=== PATIENT | female | born 1960 | race Caucasian/White ===

== ENCOUNTER 2020-11-11 06:24 | Emergency (ER) | payer MEDICARE ==
[2020-11-11 08:57] LABS: BASOPHIL 0.4 % (0-2); EOSINOPHIL 0.2 % (0-5); HCT 40.3 % (37.0-47.0); HGB 13.1 g/dl (12.5-16.0); LYMPHOCYTE 12.1 % (15-48); MCH 29.7 pg (25.0-31.0); MCHC 32.5 g/dL (32.0-36.0); MCV 91.4 fL (78.0-100.0); MONOCYTE 3.1 % (0-12); MPV 11.2 fL (6.0-9.5); NRBC 0; PLT 249 K/uL (150-400); RBC 4.41 M/uL (4.20-5.40); WBC 10.5 K/uL (4.0-10.5)
[2020-11-11 08:58] LABS: ALBUMIN 3.6 g/dL (3.4-5.0); BILIRUBIN - TOTAL 0.5 mg/dL (0.2-1.0); BUN/CREAT RATIO (CALC) 34.5 RATIO; C-REACTIVE PROTEIN 0.5 mg/dL (<=0.90); CREATININE 0.58 mg/dL (0.51-0.95); GLOBULIN (CALCULATION) 3.9 g/dL; POTASSIUM 4.3 mmol/L (3.5-5.1); TOTAL PROTEIN 7.5 g/dL (6.4-8.2)
[2020-11-11 09:17] LABS: LACTIC ACID 1.5 mmol/L (0.4-1.9)
[2020-11-11 12:18] LABS: BILIRUBIN NEGATIVE (NEGATIVE); BLOOD 1+ Ery/uL (NEGATIVE); CLARITY CLEAR (CLEAR); COLOR YELLOW (YELLOW); GLUCOSE (U) NORMAL (NORMAL); LEUKOCYTES NEGATIVE Leu/uL (NEGATIVE); NITRITE NEGATIVE (NEGATIVE); PROTEIN NEGATIVE (NEGATIVE); SPECIFIC GRAVITY >=1.030 (1.001-1.030); pH 5.5 (5.0-9.0)
[2020-11-11] MEDS ORDERED: 8 HOUR650 MG PO (12:26)
[2020-11-11] MEDS ORDERED: IBUPROFEN800 MG PO (12:26)
[2020-11-11 12:53] LABS: AMORPHOUS URATES CRYSTALS MODERATE; SQUAMOUS EPITHELIAL CELLS RARE; URINARY RBC RARE; URINARY WBC RARE
== END 2020-11-11 12:54 | disposition home or self-care (01) ==
LOC: FER 06:24
PROVIDERS: Internal Medicine
DX: N83.8 Other noninflammatory disorders of ovary, fallopian tube and broad ligament (principal); Z90.49 Acquired absence of other specified parts of digestive tract; Z98.890 Other specified postprocedural states; Z88.5 Allergy status to narcotic agent; Z79.899 Other long term (current) drug therapy
CPT/HCPCS: 36415; 76856; 80053; 81001; 83605; 83690; 85025; 86140; J1885; J2405